=== PATIENT | male | born 2000 | race Caucasian/White ===

== ENCOUNTER → 2023-06-27 14:10 | Outpatient (CLI) | payer OTHER, SELFPAY ==
--- NOTE | 2023-06-27 14:13 | DI.ECHO.S_ITS ---
[facility] : : [address] : : [place] : : [id number] : : Phone: [phone] Echocardiogram Report + + :Name: EVE SIDHU Study Date: 06/27/2023 Height: 70.5 in: :[facility] ReadingLocation: Weight: 150 lb : : Gender: Male BSA: 1.9 m2 : :: 2000 Age: 23 yrs BP: 131/67 mmHg: :Reason For Study: PALPITATIONS : :Ordering Physician: JIM, : :ERIN Leavitt Performed By: Lenka Dennis : :Referring: ERIN DOHERTY : + + Interpretation Summary The ejection fraction is estimated to be 55-60%. Diastolic parameters suggest probable normal left ventricular diastolic function and normal filling pressures. The right ventricle is normal in size and function. No significant valvular abnormalities. Pulmonary artery pressures cannot be estimated because of the lack of a measurable TR jet velocity but the IVC suggests a CVP of around 3 mmHg. Procedure: A two-dimensional transthoracic echocardiogram with color flow and Doppler was performed. The study quality was technically good. There is no prior echocardiogram noted for this patient. The patient was in sinus rhythm with heart rates between 88-97 bpm during the exam. Left Ventricle: The left ventricle is normal in size and wall thickness. The ejection fraction is estimated to be 55-60%. Diastolic parameters suggest probable normal left ventricular diastolic function and normal filling pressures. Right Ventricle: The right ventricle is normal in size and function. Atria: The left atrial size is normal. Right atrial size is normal. There is no Doppler evidence for an interatrial shunt. Mitral Valve: There is a flat closure plane of the the mitral valve leaflets. There is trace mitral regurgitation. Aortic Valve: The aortic valve is trileaflet. The aortic valve opens well. There is no aortic valve stenosis. No aortic regurgitation is present. Tricuspid Valve: The tricuspid valve is normal in structure and function. There is trace tricuspid regurgitation. Pulmonary artery pressures cannot be estimated because of the lack of a measurable TR jet velocity but the IVC suggests a CVP of around 3 mmHg. Pulmonic Valve: The pulmonic valve leaflets are thin and pliable; valve motion is normal. There is trace pulmonic regurgitation. Great Vessels: The aortic root is normal size. The dimensions of the ascending aorta are normal. The IVC is of normal diameter and collapses greater than 50% with a sniff. This suggests a low right atrial pressure of 3 mm Hg. Pericardium/ Pleura There is no pericardial effusion. There is no pleural effusion. MMode/2D Measurements & Calculations LVIDd: 5.3 cm LVOT diam: 2.0 cm LVIDs: 3.3 cm Ao root diam: 2.9 cm FS: 37.0 % asc Aorta Diam: 2.6 cm IVSd: 0.70 cm Ao Arch Diam (Prox Trans): 2.4 cm LVPWd: 0.46 cm LV bell. diameter/BSA (cm/m^2): 2.8 LV sys. diameter/BSA (cm/m^2): 1.8 LA A2 area: 14.9 cm2 RA long axis: 4.2 cm LA A4 area: 14.4 cm2 RA area: 12.6 cm2 LA length (vol): 4.2 cm RA vol: 32.2 ml LA vol: 43.6 ml RA : 17.3 ml/m2 LA vol index: 23.5 ml/m2 IVC diam: 2.0 cm RVD1 (basal): 3.2 cm RVD2 (mid): 2.9 cm TAPSE: 2.1 cm Doppler Measurements & Calculations Ao V2 max: 161.0 cm/sec LVOT Max Lukazs: 123.9 cm/sec Ao V2 mean: 116.8 cm/sec LV V1 max P.1 mmHg Ao max P.4 mmHg LV V1 VTI: 23.0 cm Ao mean P.0 mmHg BONI(I,D): 2.7 cm2 Ao V2 VTI: 28.0 cm BONI(V,D): 2.5 cm2 sev ratio: 0.82 BONI indexed to BSA (cm^2/m^2): 1.4 MV E max lukasz: 89.7 cm/sec TR max lukasz: 242.2 cm/sec MV A max lukasz: 46.9 cm/sec TR max P.5 mmHg MV E/A: 1.9 PA V2 max: 107.2 cm/sec Med Peak E' Lukasz: 16.3 cm/sec PA V2 mean: 75.7 cm/sec E/E' med: 5.5 PA mean P.6 mmHg Lat Peak E' Lukasz: 21.9 cm/sec PA pr(Accel): 29.3 mmHg E/E' lat: 4.1 E/e' average: 4.8 MV dec time: 0.20 sec SVLVOT): 74.7 ml Reading Physician:05:00 PM
--- NOTE | 2023-06-27 14:13 | DI.NM.S_ITS ---
PROCEDURE: NM EXERCISE TREADMILL NON NUC COMPARISON: None. INDICATIONS: Palpitations FINDINGS: Rest ECG sinus rhythm. John protocol 12:16, maximum heart rate 170 bpm (86% peak predicted), maximum blood pressure 166/70, 12.8 METS, NAHID 20%. Exercise ECG sinus tachycardia with, no ST segment changes or arrhythmia. The patient did not complain of exercise-induced chest discomfort. IMPRESSION: Low risk study. No evidence of exercise-induced ischemia or arrhythmia. Normal hemodynamic response. Reduced exercise capacity. Dictated by: Rhoda Doherty D.O. on 06/27/2023 at 16:36 Approved by: Rhoda Doherty D.O. on 06/27/2023 at 16:38
== END ==
PROVIDERS: Referring Provider Internal Medicine Cardiovascular Disease; Visit Provider Internal Medicine Cardiovascular Disease
DX: R00.2 Palpitations (principal)
CPT/HCPCS: 93017; 93306